=== PATIENT | male | born 1960 | race Caucasian/White ===

== ENCOUNTER 2017-09-04 05:57 | Day surgery (SDC) | payer BC ==
[2017-09-04] MEDS ORDERED: ACETAMINOPHEN 325 MG TABLET PO PRN (06:00)
[2017-09-04] MEDS ORDERED: DEXAMETHASONE SOD PHOSPHATE 10 MG/ML VIAL IV PRN (06:00)
[2017-09-04] MEDS ORDERED: RINGER'S SOLUTION,LACTATED 1,000 ML IV PRN (06:00)
[2017-09-04] MEDS ORDERED: ONDANSETRON HCL/PF 2 MG/ML VIAL IV PRN (06:00)
[2017-09-04] MEDS ORDERED: oxyCODONE HCL/ACETAMINOPHEN 1 TAB TABLET PO PRN ×2 (06:00)
[2017-09-04] MEDS ORDERED: MORPHINE SULFATE 10 MG/ML SYRG IV PRN ×2 (06:00)
[2017-09-04] MEDS ORDERED: MORPHINE SULFATE 4 MG/ML SYRG IV PRN ×2 (06:00)
[2017-09-04] MEDS: OXYMETAZOLINE HCL 150 SPRAY BTL NS PRN ×2 (06:31→07:02)
[2017-09-04] MEDS ORDERED: COCAINE HCL 4 APPL BTL TP ONE (07:27)
[2017-09-04] MEDS ORDERED: LIDOCAINE HCL/EPINEPHRINE 30 ML VIAL IJ ONE ×2 (07:27)
[2017-09-04] MEDS ORDERED: MUPIROCIN 22 APPL TUBE TP ONE (07:28)
[2017-09-04] MEDS ORDERED: MORPHINE SULFATE 4 MG/ML SYRG IV ONE (08:14)
[2017-09-04 09:37] VITALS: BP 135/76
== END 2017-09-04 05:58 | disposition home or self-care (01) ==
LOC: AMB 05:57
PROVIDERS: ATTEND Allergy & Immunology
PROC: 0NSBXZZ Reposition Nasal Bone, External Approach (ICD-10-PCS; 2017-09-04)
PROC: 09BM0ZZ Excision of Nasal Septum, Open Approach (ICD-10-PCS; principal; 2017-09-04 07:00)
DX: J34.2 Deviated nasal septum (principal); J34.3 Hypertrophy of nasal turbinates; R04.0 Epistaxis; I10 Essential (primary) hypertension; Z68.34 Body mass index [BMI] 34.0-34.9, adult